=== PATIENT | female | born 1945 | race African-American/Black ===

== ENCOUNTER 2018-07-17 18:55 | Inpatient (IN) | payer OTHER ==
[~2018-07-17] VITALS: Ht 165.1 cm; Wt 93.2 kg
[2018-07-17] MEDS ORDERED: IPRATROPIUM BROMIDE 0.5 MG/2.5 ML NEBU. NEB ONE (20:15)
[2018-07-17] MEDS ORDERED: ALBUTEROL SULFATE 2.5 MG/3 ML NEBU. NEB ONE (20:15)
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
[2018-07-17] MEDS ORDERED: IPRATRPIUM/ALBUTEROL 0.5/2.5MG 3 ML NEBU. ONE (20:54)
[2018-07-17 21:13] LABS: BASO # 0.1 x10^3/uL (0.0-0.2); BASO % 1 % (0-3); EOS # 0.7 x10^3/uL (0.0-0.7); EOS % 12 % (0-3); HEMATOCRIT 39.7 % (36.0-47.0); HEMOGLOBIN 12.8 g/dL (12.0-15.5); LYMPH # 2.1 x10^3/uL (1.0-4.8); LYMPH % 34 % (24-48); MEAN CORPUSCULAR HEMOGLOBIN 26 pg (25-35); MEAN CORPUSCULAR HGB CONC 32 g/dL (31-37); MEAN CORPUSCULAR VOLUME 82 fL (79-100); MONO # 0.7 x10^3/uL (0.0-1.1); MONO % 12 % (0-9); NEUT # 2.5 x10^3uL (1.8-7.7); NEUT % 41 % (31-73); PLATELET COUNT 234 x10^3/uL (140-400); RED BLOOD COUNT 4.86 x10^6/uL (3.50-5.40); RED CELL DISTRIBUTION WIDTH 14.4 % (11.5-14.5)
[2018-07-17 21:23] LABS: CALCIUM 9.9 mg/dL (8.5-10.1); CREATININE 1.2 mg/dL (0.6-1.0); GFR 53.7; POTASSIUM 3.7 mmol/L (3.5-5.1)
[2018-07-17 21:29] LABS: ALBUMIN 3.8 g/dL (3.4-5.0); ALBUMIN/GLOBULIN RATIO 0.8 (1.0-1.7); TOTAL BILIRUBIN 0.4 mg/dL (0.2-1.0); TOTAL PROTEIN 8.5 g/dL (6.4-8.2)
[2018-07-17] MEDS ORDERED: LABETALOL 20 MG/4 ML DISP.SYRIN. IVP ONE (21:30)
[2018-07-17 22:17] LABS: BILIRUBIN,URINE NEGATIVE (NEG); CLARITY,URINE CLEAR; COLOR,URINE YELLOW; NITRITE,URINE NEGATIVE (NEG); PH,URINE 7.5; PROTEIN,URINE 30 mg/dL (NEG-TRACE); UROBILINOGEN,URINE 0.2 mg/dL (0.2 mg/dL)
[2018-07-17 22:30] LABS: BACTERIA,URINE MODERATE /HPF (0-FEW); RBC,URINE OCC /HPF (0-2); SQUAMOUS EPITHELIAL CELL,UR FEW /LPF; WBC,URINE OCC /HPF (0-4)
[2018-07-17] MEDS ORDERED: diphenhydrAMINE HCL 25 MG CAPSULE PO PRN (22:45)
[2018-07-17] MEDS ORDERED: LABETALOL 20 MG/4 ML DISP.SYRIN. IVP PRN (22:45)
[2018-07-17] MEDS ORDERED: ALBUTEROL SULFATE 2.5 MG/3 ML NEBU. NEB PRN (22:45)
[2018-07-17] MEDS ORDERED: IBUPROFEN 400 MG TABLET. PO PRN (22:45)
[2018-07-17] MEDS ORDERED: ENALAPRILAT 1.25 MG/ML VIAL. IVP PRN (22:45)
[2018-07-17 23:00] VITALS: BP 209/119
--- NOTE | 2018-07-17 23:42 | RAD ---
Indication:Short of breath TECHNIQUE:PA and lateral views of the chest COMPARISON:None FINDINGS: Heart is normal in size. Mild central bilateral peribronchial wall thickening noted. No focal consolidation. No pneumothorax or pleural effusion. Visualized bony thorax within normal limits. IMPRESSION: Findings suggests mild bronchitis. Clinically correlate with symptoms. Electronically signed by: Terry Elizabeth DO (07/17/2018 11:39 PM) [facility]
[2018-07-18] MEDS ORDERED: IPRATRPIUM/ALBUTEROL 0.5/2.5MG 3 ML NEBU. NEB ONE (00:15)
[2018-07-18] MEDS ORDERED: NIAC500T PO (03:12)
[2018-07-18] MEDS ORDERED: HYDR12.58 PO (03:12)
[2018-07-18 04:59] VITALS: BP 181/103
[2018-07-18 07:30] VITALS: BP 189/118
[2018-07-18] MEDS ORDERED: hydroCHLOROthiazide 12.5 MG CAPSULE PO SCH (09:00)
--- NOTE | 2018-07-18 09:22 | EKG ---
[facility] [address] [place] [address] Test Date: 2018-07-17 Test Time: 20:21:28 Pat Name: BELGICA MAYORGA Department: Room: [facility] Gender: F [employer]: : 1945 Requested By: ELADIA LEYVA Order Number: [id number] Reading MD: Tarun Aguero MD Measurements Intervals [place] Rate: 91 P: 56 MO: 166 QRS: -4 QRSD: 86 T: 76 QT: 380 QTc: 475 Interpretive Statements SINUS RHYTHM Electronically Signed On 07-20-2018 11:31:38 CDT by Tarun Aguero MD
[2018-07-18 11:00] VITALS: BP 211/128
[2018-07-18] MEDS: LISINOPRIL 20 MG TABLET PO ONE (11:00)
[2018-07-18 12:18] LABS: BASO # 0.1 x10^3/uL (0.0-0.2); BASO % 1 % (0-3); EOS # 0.6 x10^3/uL (0.0-0.7); EOS % 9 % (0-3); HEMATOCRIT 39.1 % (36.0-47.0); HEMOGLOBIN 12.9 g/dL (12.0-15.5); LYMPH # 1.8 x10^3/uL (1.0-4.8); LYMPH % 28 % (24-48); MEAN CORPUSCULAR HEMOGLOBIN 27 pg (25-35); MEAN CORPUSCULAR HGB CONC 33 g/dL (31-37); MEAN CORPUSCULAR VOLUME 82 fL (79-100); MONO % 15 % (0-9); NEUT # 3.2 x10^3uL (1.8-7.7); NEUT % 48 % (31-73); PLATELET COUNT 226 x10^3/uL (140-400); RED CELL DISTRIBUTION WIDTH 14.4 % (11.5-14.5); WHITE BLOOD COUNT 6.6 x10^3/uL (4.0-11.0)
[2018-07-18 12:28] LABS: CALCIUM 9.5 mg/dL (8.5-10.1); CREATININE 1.3 mg/dL (0.6-1.0)
--- NOTE | 2018-07-18 13:12 | PDOC1 ---
History and Physical Date of Admission Date of Admission DATE: 07/18/18 TIME: 13:08 Identification/Chief Complaint Chief Complaint High blood pressure Source Source: Caregiver, Chart review, Patient History of Present Illness History of Present Illness She is not the best historian because she is minimally cooperative I'm not sure why she got admitted when she refuses to take meds for us In any case most of the history obtained via chart because of minimal cooperation, admitted because of some symptoms. Was found have a blood pressure greater than 200, went down a bit after labetalol 10 at the emergency room. Patient was admitted to me for hypertensive emergency POA I'm seeing the patient, still refusing lisinopril. Blood pressure is still 180s to 200s. Takes HCTZ 12.5 at home and claims compliance. I did order order echocardiogram-I am unsure if she will allow this Multiple calls early today because of noncompliance. Or at least patient tells me that she wants to eat first before she takes pills. But we did give her a regular tray for breakfast and she does not like the meal for personal reasons. 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 SHe lives alone at home,. Past Medical History Cardiovascular: HTN Past Surgical History Past Surgical History: No pertinent history Family History Family History: Hypertension Social History Smoke: No ALCOHOL: none Drugs: None Current Problem List Problem List Problems Medical Problems: (1) Hypertensive urgency Status: Acute Current Medications Current Medications Current Medications Ipratropium [place] (Atrovent) 0.5 mg 1X ONCE NEB Last administered on at 20:15; Start 07/17/18 at 20:15; Stop 07/17/18 at 21:10; Status DC Albuterol Sulfate (Ventolin Neb Soln) 5 mg 1X ONCE NEB Last administered on at 20:15; Start 07/17/18 at 20:15; Stop 07/17/18 at 21:10; Status DC Labetalol HCl (Normodyne Iv Push) 10 mg 1X ONCE IVP Last administered on 07/17at 21:51; Start 07/17/18 at 21:30; Stop 07/17/18 at 21:31; Status DC Albuterol/ Ipratropium (Duoneb) 3 ml STK-MED ONCE .ROUTE ; Start 07/17/18 at 20 :54; Stop 07/17/18 at 20:55; Status DC Labetalol HCl (Normodyne Iv Push) 20 mg PRN Q2HR PRN IVP HYPERTENSION, SEE COMMENTS; Start 07/17/18 at 22:45 Enalaprilat (Vasotec Inj) 1.25 mg PRN Q6HRS PRN IVP HYPERTENSION, SEE COMMENTS ; Start 07/17/18 at 22:45 Albuterol Sulfate (Ventolin Neb Soln) 2.5 mg PRN Q4HRS PRN NEB SHORTNESS OF BREATH; Start 07/17/18 at 22:45 Diphenhydramine HCl (Benadryl) 25 mg PRN QHS PRN PO INSOMNIA; Start 07/17/18 at 22:45 Ibuprofen (Motrin) 400 mg PRN Q6HRS PRN PO INFLAMMATION; Start 07/17/18 at 22: 45 Albuterol/ Ipratropium (Duoneb) 3 ml 1X ONCE NEB ; Start 07/18/18 at 00:15; Stop 07/18/18 at 00:16; Status DC Niacin (Slo-Niacin) 500 mg QHS PO ; Start 07/18/18 at 21:00 Hydrochlorothiazide (Microzide) 12.5 mg DAILY PO Last administered on at 12:17; Start 07/18/18 at 09:00 Lisinopril (Prinivil) 20 mg DAILY PO ; Start 07/19/18 at 09:00 Lisinopril (Prinivil) 20 mg 1X ONCE PO ; Start 07/18/18 at 11:00; Stop at 11:01; Status DC Active Scripts Active Reported Hydrochlorothiazide Tablet (Hydrochlorothiazide) 12.5 Mg Tablet 1 Tab PO DAILY Niaspan (Niacin) 500 Mg Tab.er.24h 1 Tab PO QHS Allergies Allergies: Coded Allergies: acetaminophen (Verified Allergy, Severe, Swelling, 07/17/18) iodine (Verified Allergy, Severe, Itching, 07/17/18) Penicillins (Verified Allergy, Intermediate, Swelling, 07/17/18) ROS Review of System Limited, minimal cooperation Physical Exam General: Alert, Oriented X3, Cooperative, No acute distress HEENT: Atraumatic, PERRLA, Other (blind in the left eye) Lungs: Clear to auscultation, Normal air movement Heart: S1S2, RRR, no thrills, no rubs, no gallops Cardiovascular: S1, S2 Breasts: Normal, Rt breast nml w/o mass, Lt breast nml w/o mass, Nipples normal Abdomen: Normal bowel sounds, Soft, No tenderness, No hepatosplenomegaly, No masses Rectal Exam: not examined PELVIC: Nml ext genitalia Extremities: No clubbing, No cyanosis, No edema, Normal pulses, No tenderness/ swelling Skin: No rashes, No breakdown, No significant lesion Neuro: Normal gait, Normal speech, Strength at 5/5 X4 ext, Normal tone, Sensation intact, Cranial nerves 3-12 NL, Reflexes 2+ Psych/Mental Status: Mental status NL, Mood NL Vitals Vitals Vital Signs Date Time Temp Pulse Resp B/P (MAP) Pulse Ox O2 Delivery O2 Flow Rate FiO2 07/18/18 11:00 98.2 92 16 211/128 (155) 94 Room Air 98.2 07/17/18 22:25 96.0 Labs Labs Laboratory Tests Test 07/17/18 20:55 07/17/18 22:05 07/18/18 12:05 White Blood Count 6.0 x10^3/uL (4.0-11.0) 6.6 x10^3/uL (4.0-11.0) Red Blood Count 4.86 x10^6/uL (3.50-5.40) 4.80 x10^6/uL (3.50-5.40) Hemoglobin 12.8 g/dL (12.0-15.5) 12.9 g/dL (12.0-15.5) Hematocrit 39.7 % (36.0-47.0) 39.1 % (36.0-47.0) Mean Corpuscular Volume 82 fL (79-100) 82 fL (79-100) Mean Corpuscular Hemoglobin 26 pg (25-35) 27 pg (25-35) Mean Corpuscular Hemoglobin Concent 32 g/dL (31-37) 33 g/dL (31-37) Red Cell Distribution Width 14.4 % (11.5-14.5) 14.4 % (11.5-14.5) Platelet Count 234 x10^3/uL (140-400) 226 x10^3/uL (140-400) Neutrophils (%) (Auto) 41 % (31-73) 48 % (31-73) Lymphocytes (%) (Auto) 34 % (24-48) 28 % (24-48) Monocytes (%) (Auto) 12 % (0-9) 15 % (0-9) Eosinophils (%) (Auto) 12 % (0-3) 9 % (0-3) Basophils (%) (Auto) 1 % (0-3) 1 % (0-3) Neutrophils # (Auto) 2.5 x10^3uL (1.8-7.7) 3.2 x10^3uL (1.8-7.7) Lymphocytes # (Auto) 2.1 x10^3/uL (1.0-4.8) 1.8 x10^3/uL (1.0-4.8) Monocytes # (Auto) 0.7 x10^3/uL (0.0-1.1) 1.0 x10^3/uL (0.0-1.1) Eosinophils # (Auto) 0.7 x10^3/uL (0.0-0.7) 0.6 x10^3/uL (0.0-0.7) Basophils # (Auto) 0.1 x10^3/uL (0.0-0.2) 0.1 x10^3/uL (0.0-0.2) Sodium Level 141 mmol/L (136-145) 141 mmol/L (136-145) Potassium Level 3.7 mmol/L (3.5-5.1) 4.0 mmol/L (3.5-5.1) Chloride Level 101 mmol/L (98-107) 102 mmol/L (98-107) Carbon Dioxide Level 32 mmol/L (21-32) 31 mmol/L (21-32) Anion Gap 8 (6-14) 8 (6-14) Blood Urea Nitrogen 19 mg/dL (7-20) 19 mg/dL (7-20) Creatinine 1.2 mg/dL (0.6-1.0) 1.3 mg/dL (0.6-1.0) Estimated GFR (Cockcroft-Gault) 53.7 49.0 BUN/Creatinine Ratio 16 (6-20) Glucose Level 101 mg/dL (70-99) 99 mg/dL (70-99) Calcium Level 9.9 mg/dL (8.5-10.1) 9.5 mg/dL (8.5-10.1) Total Bilirubin 0.4 mg/dL (0.2-1.0) Aspartate Amino Transf (AST/SGOT) 28 U/L (15-37) Alanine Aminotransferase (ALT/SGPT) 37 U/L (14-59) Alkaline Phosphatase 104 U/L (46-116) Troponin I Quantitative < 0.017 ng/mL (0.000-0.055) SH-Oqc-C-Type Natriuretic Peptide 258 pg/mL (0-124) Total Protein 8.5 g/dL (6.4-8.2) Albumin 3.8 g/dL (3.4-5.0) Albumin/Globulin Ratio 0.8 (1.0-1.7) Urine Collection Type Unknown Urine Color Yellow Urine Clarity Clear Urine pH 7.5 Urine Specific [place] 1.010 Urine Protein 30 mg/dL (NEG-TRACE) Urine Glucose (UA) Negative mg/dL (NEG) Urine Ketones (Stick) Negative mg/dL (NEG) Urine Blood Negative (NEG) Urine Nitrite Negative (NEG) Urine Bilirubin Negative (NEG) Urine Urobilinogen Dipstick 0.2 mg/dL (0.2 mg/dL) Urine Leukocyte Esterase Negative (NEG) Urine RBC Occ /HPF (0-2) Urine WBC Occ /HPF (0-4) Urine Squamous Epithelial Cells Few /LPF Urine Bacteria Moderate /HPF (0-FEW) Laboratory Tests Test 07/17/18 20:55 07/17/18 22:05 07/18/18 12:05 White Blood Count 6.0 x10^3/uL (4.0-11.0) 6.6 x10^3/uL (4.0-11.0) Red Blood Count 4.86 x10^6/uL (3.50-5.40) 4.80 x10^6/uL (3.50-5.40) Hemoglobin 12.8 g/dL (12.0-15.5) 12.9 g/dL (12.0-15.5) Hematocrit 39.7 % (36.0-47.0) 39.1 % (36.0-47.0) Mean Corpuscular Volume 82 fL (79-100) 82 fL (79-100) Mean Corpuscular Hemoglobin 26 pg (25-35) 27 pg (25-35) Mean Corpuscular Hemoglobin Concent 32 g/dL (31-37) 33 g/dL (31-37) Red Cell Distribution Width 14.4 % (11.5-14.5) 14.4 % (11.5-14.5) Platelet Count 234 x10^3/uL (140-400) 226 x10^3/uL (140-400) Neutrophils (%) (Auto) 41 % (31-73) 48 % (31-73) Lymphocytes (%) (Auto) 34 % (24-48) 28 % (24-48) Monocytes (%) (Auto) 12 % (0-9) 15 % (0-9) Eosinophils (%) (Auto) 12 % (0-3) 9 % (0-3) Basophils (%) (Auto) 1 % (0-3) 1 % (0-3) Neutrophils # (Auto) 2.5 x10^3uL (1.8-7.7) 3.2 x10^3uL (1.8-7.7) Lymphocytes # (Auto) 2.1 x10^3/uL (1.0-4.8) 1.8 x10^3/uL (1.0-4.8) Monocytes # (Auto) 0.7 x10^3/uL (0.0-1.1) 1.0 x10^3/uL (0.0-1.1) Eosinophils # (Auto) 0.7 x10^3/uL (0.0-0.7) 0.6 x10^3/uL (0.0-0.7) Basophils # (Auto) 0.1 x10^3/uL (0.0-0.2) 0.1 x10^3/uL (0.0-0.2) Sodium Level 141 mmol/L (136-145) 141 mmol/L (136-145) Potassium Level 3.7 mmol/L (3.5-5.1) 4.0 mmol/L (3.5-5.1) Chloride Level 101 mmol/L (98-107) 102 mmol/L (98-107) Carbon Dioxide Level 32 mmol/L (21-32) 31 mmol/L (21-32) Anion Gap 8 (6-14) 8 (6-14) Blood Urea Nitrogen 19 mg/dL (7-20) 19 mg/dL (7-20) Creatinine 1.2 mg/dL (0.6-1.0) 1.3 mg/dL (0.6-1.0) Estimated GFR (Cockcroft-Gault) 53.7 49.0 BUN/Creatinine Ratio 16 (6-20) Glucose Level 101 mg/dL (70-99) 99 mg/dL (70-99) Calcium Level 9.9 mg/dL (8.5-10.1) 9.5 mg/dL (8.5-10.1) Total Bilirubin 0.4 mg/dL (0.2-1.0) Aspartate Amino Transf (AST/SGOT) 28 U/L (15-37) Alanine Aminotransferase (ALT/SGPT) 37 U/L (14-59) Alkaline Phosphatase 104 U/L (46-116) Troponin I Quantitative < 0.017 ng/mL (0.000-0.055) BP-Hge-M-Type Natriuretic Peptide 258 pg/mL (0-124) Total Protein 8.5 g/dL (6.4-8.2) Albumin 3.8 g/dL (3.4-5.0) Albumin/Globulin Ratio 0.8 (1.0-1.7) Urine Collection Type Unknown Urine Color Yellow Urine Clarity Clear Urine pH 7.5 Urine Specific [place] 1.010 Urine Protein 30 mg/dL (NEG-TRACE) Urine Glucose (UA) Negative mg/dL (NEG) Urine Ketones (Stick) Negative mg/dL (NEG) Urine Blood Negative (NEG) Urine Nitrite Negative (NEG) Urine Bilirubin Negative (NEG) Urine Urobilinogen Dipstick 0.2 mg/dL (0.2 mg/dL) Urine Leukocyte Esterase Negative (NEG) Urine RBC Occ /HPF (0-2) Urine WBC Occ /HPF (0-4) Urine Squamous Epithelial Cells Few /LPF Urine Bacteria Moderate /HPF (0-FEW) VTE Prophylaxis Ordered VTE Prophylaxis Devices: Yes VTE Pharmacological Prophylaxi: Yes Assessment/Plan Assessment/Plan HTN emergency Noncompliance/Difficult behavior BLind on left eye PLAN: Echocardiogram, rule out hypertensive heart disease Start lisinopril 20 Continue HCTZ 12.5 I'm recommending her to discharge if she does not want us to manage her as she signed a paper on admission allowing us treat her-but she is not allowing this dw GEOVANNA CARO MD Jul 18, 2018 13:12
--- NOTE | 2018-07-18 15:39 | PDOC3 ---
Discharge Summary Visit Information Date of Admission: Jul 17, 2018 Date of Discharge: Jul 18, 2018 Admitting Diagnosis Comment: HTN emergency Noncompliance/Difficult behavior BLind on left eye Final Diagnosis Problems Medical Problems: (1) Hypertensive urgency Status: Acute Brief Hospital Course Allergies Allergies Coded Allergies Type Severity Reaction Last Updated Verified acetaminophen Allergy Severe Swelling 07/17/18 Yes iodine Allergy Severe Itching 07/17/18 Yes Penicillins Allergy Intermediate Swelling 07/17/18 Yes Vital Signs Vital Signs Date Time Temp Pulse Resp B/P (MAP) Pulse Ox O2 Delivery O2 Flow Rate FiO2 07/18/18 11:00 98.2 92 16 211/128 (155) 94 Room Air 98.2 07/17/18 22:25 96.0 Lab Results Laboratory Tests Test 07/17/18 20:55 07/17/18 22:05 07/18/18 12:05 White Blood Count 6.0 x10^3/uL (4.0-11.0) 6.6 x10^3/uL (4.0-11.0) Red Blood Count 4.86 x10^6/uL (3.50-5.40) 4.80 x10^6/uL (3.50-5.40) Hemoglobin 12.8 g/dL (12.0-15.5) 12.9 g/dL (12.0-15.5) Hematocrit 39.7 % (36.0-47.0) 39.1 % (36.0-47.0) Mean Corpuscular Volume 82 fL (79-100) 82 fL (79-100) Mean Corpuscular Hemoglobin 26 pg (25-35) 27 pg (25-35) Mean Corpuscular Hemoglobin Concent 32 g/dL (31-37) 33 g/dL (31-37) Red Cell Distribution Width 14.4 % (11.5-14.5) 14.4 % (11.5-14.5) Platelet Count 234 x10^3/uL (140-400) 226 x10^3/uL (140-400) Neutrophils (%) (Auto) 41 % (31-73) 48 % (31-73) Lymphocytes (%) (Auto) 34 % (24-48) 28 % (24-48) Monocytes (%) (Auto) 12 % (0-9) 15 % (0-9) Eosinophils (%) (Auto) 12 % (0-3) 9 % (0-3) Basophils (%) (Auto) 1 % (0-3) 1 % (0-3) Neutrophils # (Auto) 2.5 x10^3uL (1.8-7.7) 3.2 x10^3uL (1.8-7.7) Lymphocytes # (Auto) 2.1 x10^3/uL (1.0-4.8) 1.8 x10^3/uL (1.0-4.8) Monocytes # (Auto) 0.7 x10^3/uL (0.0-1.1) 1.0 x10^3/uL (0.0-1.1) Eosinophils # (Auto) 0.7 x10^3/uL (0.0-0.7) 0.6 x10^3/uL (0.0-0.7) Basophils # (Auto) 0.1 x10^3/uL (0.0-0.2) 0.1 x10^3/uL (0.0-0.2) Sodium Level 141 mmol/L (136-145) 141 mmol/L (136-145) Potassium Level 3.7 mmol/L (3.5-5.1) 4.0 mmol/L (3.5-5.1) Chloride Level 101 mmol/L (98-107) 102 mmol/L (98-107) Carbon Dioxide Level 32 mmol/L (21-32) 31 mmol/L (21-32) Anion Gap 8 (6-14) 8 (6-14) Blood Urea Nitrogen 19 mg/dL (7-20) 19 mg/dL (7-20) Creatinine 1.2 mg/dL (0.6-1.0) 1.3 mg/dL (0.6-1.0) Estimated GFR (Cockcroft-Gault) 53.7 49.0 BUN/Creatinine Ratio 16 (6-20) Glucose Level 101 mg/dL (70-99) 99 mg/dL (70-99) Calcium Level 9.9 mg/dL (8.5-10.1) 9.5 mg/dL (8.5-10.1) Total Bilirubin 0.4 mg/dL (0.2-1.0) Aspartate Amino Transf (AST/SGOT) 28 U/L (15-37) Alanine Aminotransferase (ALT/SGPT) 37 U/L (14-59) Alkaline Phosphatase 104 U/L (46-116) Troponin I Quantitative < 0.017 ng/mL (0.000-0.055) TZ-Bsg-J-Type Natriuretic Peptide 258 pg/mL (0-124) Total Protein 8.5 g/dL (6.4-8.2) Albumin 3.8 g/dL (3.4-5.0) Albumin/Globulin Ratio 0.8 (1.0-1.7) Urine Collection Type Unknown Urine Color Yellow Urine Clarity Clear Urine pH 7.5 Urine Specific [place] 1.010 Urine Protein 30 mg/dL (NEG-TRACE) Urine Glucose (UA) Negative mg/dL (NEG) Urine Ketones (Stick) Negative mg/dL (NEG) Urine Blood Negative (NEG) Urine Nitrite Negative (NEG) Urine Bilirubin Negative (NEG) Urine Urobilinogen Dipstick 0.2 mg/dL (0.2 mg/dL) Urine Leukocyte Esterase Negative (NEG) Urine RBC Occ /HPF (0-2) Urine WBC Occ /HPF (0-4) Urine Squamous Epithelial Cells Few /LPF Urine Bacteria Moderate /HPF (0-FEW) Laboratory Tests Test 07/17/18 20:55 07/17/18 22:05 07/18/18 12:05 White Blood Count 6.0 x10^3/uL (4.0-11.0) 6.6 x10^3/uL (4.0-11.0) Red Blood Count 4.86 x10^6/uL (3.50-5.40) 4.80 x10^6/uL (3.50-5.40) Hemoglobin 12.8 g/dL (12.0-15.5) 12.9 g/dL (12.0-15.5) Hematocrit 39.7 % (36.0-47.0) 39.1 % (36.0-47.0) Mean Corpuscular Volume 82 fL (79-100) 82 fL (79-100) Mean Corpuscular Hemoglobin 26 pg (25-35) 27 pg (25-35) Mean Corpuscular Hemoglobin Concent 32 g/dL (31-37) 33 g/dL (31-37) Red Cell Distribution Width 14.4 % (11.5-14.5) 14.4 % (11.5-14.5) Platelet Count 234 x10^3/uL (140-400) 226 x10^3/uL (140-400) Neutrophils (%) (Auto) 41 % (31-73) 48 % (31-73) Lymphocytes (%) (Auto) 34 % (24-48) 28 % (24-48) Monocytes (%) (Auto) 12 % (0-9) 15 % (0-9) Eosinophils (%) (Auto) 12 % (0-3) 9 % (0-3) Basophils (%) (Auto) 1 % (0-3) 1 % (0-3) Neutrophils # (Auto) 2.5 x10^3uL (1.8-7.7) 3.2 x10^3uL (1.8-7.7) Lymphocytes # (Auto) 2.1 x10^3/uL (1.0-4.8) 1.8 x10^3/uL (1.0-4.8) Monocytes # (Auto) 0.7 x10^3/uL (0.0-1.1) 1.0 x10^3/uL (0.0-1.1) Eosinophils # (Auto) 0.7 x10^3/uL (0.0-0.7) 0.6 x10^3/uL (0.0-0.7) Basophils # (Auto) 0.1 x10^3/uL (0.0-0.2) 0.1 x10^3/uL (0.0-0.2) Sodium Level 141 mmol/L (136-145) 141 mmol/L (136-145) Potassium Level 3.7 mmol/L (3.5-5.1) 4.0 mmol/L (3.5-5.1) Chloride Level 101 mmol/L (98-107) 102 mmol/L (98-107) Carbon Dioxide Level 32 mmol/L (21-32) 31 mmol/L (21-32) Anion Gap 8 (6-14) 8 (6-14) Blood Urea Nitrogen 19 mg/dL (7-20) 19 mg/dL (7-20) Creatinine 1.2 mg/dL (0.6-1.0) 1.3 mg/dL (0.6-1.0) Estimated GFR (Cockcroft-Gault) 53.7 49.0 BUN/Creatinine Ratio 16 (6-20) Glucose Level 101 mg/dL (70-99) 99 mg/dL (70-99) Calcium Level 9.9 mg/dL (8.5-10.1) 9.5 mg/dL (8.5-10.1) Total Bilirubin 0.4 mg/dL (0.2-1.0) Aspartate Amino Transf (AST/SGOT) 28 U/L (15-37) Alanine Aminotransferase (ALT/SGPT) 37 U/L (14-59) Alkaline Phosphatase 104 U/L (46-116) Troponin I Quantitative < 0.017 ng/mL (0.000-0.055) LU-Ofl-O-Type Natriuretic Peptide 258 pg/mL (0-124) Total Protein 8.5 g/dL (6.4-8.2) Albumin 3.8 g/dL (3.4-5.0) Albumin/Globulin Ratio 0.8 (1.0-1.7) Urine Collection Type Unknown Urine Color Yellow Urine Clarity Clear Urine pH 7.5 Urine Specific [place] 1.010 Urine Protein 30 mg/dL (NEG-TRACE) Urine Glucose (UA) Negative mg/dL (NEG) Urine Ketones (Stick) Negative mg/dL (NEG) Urine Blood Negative (NEG) Urine Nitrite Negative (NEG) Urine Bilirubin Negative (NEG) Urine Urobilinogen Dipstick 0.2 mg/dL (0.2 mg/dL) Urine Leukocyte Esterase Negative (NEG) Urine RBC Occ /HPF (0-2) Urine WBC Occ /HPF (0-4) Urine Squamous Epithelial Cells Few /LPF Urine Bacteria Moderate /HPF (0-FEW) Brief Hospital Course Ms. Prado is a 72 old [sex] who presented with [ ] She is not the best historian because she is minimally cooperative I'm not sure why she got admitted when she refuses to take meds for us In any case most of the history obtained via chart because of minimal cooperation, admitted because of some symptoms. Was found have a blood pressure greater than 200, went down a bit after labetalol 10 at the emergency room. Patient was admitted to me for hypertensive emergency POA I'm seeing the patient, still refusing lisinopril. Blood pressure is still 180s to 200s. Takes HCTZ 12.5 at home and claims compliance. I did order order echocardiogram-I am unsure if she will allow this Multiple calls early today because of noncompliance. Or at least patient tells me that she wants to eat first before she takes pills. But we did give her a regular tray for breakfast and she does not like the meal for personal reasons. 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 SHe lives alone at home,. COURSE: In a span of 12 hrs she has been refusing iV BP meds and PO BP Meds, being very difficult., She did sign consent to treat upon admission and I reminded her of that, Multiple calls from RN today regarding these issues. I was bebe to tell her no point in staying in hospital if she is refusing treatment for her high BP. To dc today, I still gave lisinopril HCTZ rx for home if she were interested Dw CARY Rasheed Discharge Information Condition at Discharge: Comment (refuses nmedciations, refusing us to treat her appropriately) Disposition/Orders: D/C to Home Scheduled Hydrochlorothiazide (Hydrochlorothiazide Tablet) 12.5 Mg Tablet, 1 TAB PO DAILY , #30 Ref 5 (Reported) Entered as Reported by: SOLOMON HALLMAN on 07/18/18311 Last Action: Converted on 07/18/18315 by SOLOMON HALLMAN Niacin (Niaspan) 500 Mg Tab.er.24h, 1 TAB PO QHS, #30 Ref 5 (Reported) Entered as Reported by: SOLOMON HALLMAN on 07/18/18311 Last Action: Continued on 07/18/18315 by GEOVANNA COOPER MD Jul 18, 2018 15:39
[2018-07-18] MEDS ORDERED: AMLO10TA6 PO (15:54)
[2018-07-18] MEDS ORDERED: amLODIPine BESYLATE 10 MG TABLET PO SCH (16:00)
[2018-07-18 19:59] VITALS: BP 207/128
[2018-07-18] MEDS ORDERED: NIACIN ER 500 MG TABLET.ER PO SCH (21:00)
[2018-07-19] MEDS ORDERED: LISINOPRIL 20 MG TABLET PO SCH (09:00)
== END 2018-07-18 22:01 | disposition home or self-care (01) | DRG 305 ==
LOC: ER 18:55 → 5 SOUTH 22:28
PROVIDERS: ADMIT Internal Medicine; ATTEND Internal Medicine
DX: I16.1 Hypertensive emergency (principal); H54.62 Unqualified visual loss, left eye, normal vision right eye; Z60.2 Problems related to living alone; I16.0 Hypertensive urgency; Z82.49 Family history of ischemic heart disease and other diseases of the circulatory system; Z91.19 Patient's noncompliance with other medical treatment and regimen; Z88.0 Allergy status to penicillin; Z88.8 Allergy status to other drugs, medicaments and biological substances; Z88.6 Allergy status to analgesic agent; Z91.041 Radiographic dye allergy status
CPT/HCPCS: 36415; 71046; 80048; 80053; 81001; 83880; 84484; 85025; 87086; 87186; 93005; 94640; 96374; J3490; J7613; J7644; 99285-25

== ENCOUNTER 2021-01-24 01:43 | Emergency (ER) | payer OTHER, MEDICAID ==
[~2021-01-24] VITALS: Ht 170.2 cm; Wt 81.4 kg
[~2021-01-24 01:43] MED LIST: AMLO-187 PO; HYDR12.58 PO; NIAC500T PO
--- NOTE | 2021-01-24 03:22 | PHYS DOC ---
Past Medical History Past Medical History: Anxiety, Hypertension Past Surgical History: No Surgical History Smoking Status: Never Smoker Alcohol Use: None Drug Use: None General Adult EDM: Chief Complaint: headache HPI: HPI: Patient is a 75 year old who presented to the ER due to headache for several days. She denied any chest pain, no shortness of air, no abdominal pain, no nausea or vomiting. Patient just wants a CT scan of her head to make sure she does not have a head bleed. She declined any other form of treatment or work up. Review of Systems: Review of Systems: Constitutional: Denies fever or chills. [] Eyes: Denies change in visual acuity. [] HENT: Denies nasal congestion or sore throat. [] Respiratory: Denies cough or shortness of breath. [] Cardiovascular: Denies chest pain or edema. [] GI: Denies abdominal pain, nausea, vomiting, bloody stools or diarrhea. [] : Denies dysuria. [] Musculoskeletal: Denies back pain or joint pain. [] Integument: Denies rash. [] Neurologic: Positive for headache, no focal weakness or sensory changes. [] Endocrine: Denies polyuria or polydipsia. [] Lymphatic: Denies swollen glands. [] Psychiatric: Denies depression or anxiety. [] Heart Score: C/O Chest Pain: N/A Risk Factors: Risk Factors: DM, Current or recent (<one month) smoker, HTN, HLP, family history of CAD, obesity. Risk Scores: Score 0 - 3: 2.5% MACE over next 6 weeks - Discharge Home Score 4 - 6: 20.3% MACE over next 6 weeks - Admit for Clinical Observation Score 7 - 10: 72.7% MACE over next 6 weeks - Early Invasive Strategies Allergies: Allergies: Allergies Coded Allergies Type Severity Reaction Last Updated Verified acetaminophen Allergy Severe Swelling 07/17/18 Yes iodine Allergy Severe Itching 07/17/18 Yes Penicillins Allergy Intermediate Swelling 07/17/18 Yes Physical Exam: PE: Constitutional: Well developed, well nourished, no acute distress, non-toxic appearance. [] HENT: Normocephalic, atraumatic, bilateral external ears normal, oropharynx moist, no oral exudates, nose normal. [] Eyes: PERRLA, EOMI, conjunctiva normal, no discharge. [] Neck: Normal range of motion, no tenderness, supple, no stridor. [] Cardiovascular:Heart rate regular rhythm, no murmur [] Lungs & Thorax: Bilateral breath sounds clear to auscultation [] Abdomen: Bowel sounds normal, soft, no tenderness, no masses, no pulsatile masses. [] Skin: Warm, dry, no erythema, no rash. [] Back: No tenderness, no CVA tenderness. [] Extremities: No tenderness, no cyanosis, no clubbing, ROM intact, no edema. [] Neurologic: Alert and oriented X 3, normal motor function, normal sensory function, no focal deficits noted. [] Psychologic: Affect normal, judgement normal, mood normal. [] Current Patient Data: Vital Signs: Vital Signs Date Time Temp Pulse Resp B/P (MAP) Pulse Ox O2 Delivery O2 Flow Rate FiO2 01/24/21 02:10 98.7 87 24 238/119 (158) 98 Room Air 98.7 232/109 (150) EKG: EKG: [] Radiology/Procedures: Radiology/Procedures: [facility] [address] [place] [address] IMAGING REPORT Signed PATIENT: BELGICA MAYORGA AACCOUNT: [id number] : 1945 LOCATION: ER AGE: 75 SEX: F EXAM STATUS: REG ER ORD. PHYSICIAN: MEEK CALL DO REASON: HEADACHE PROCEDURE: CT HEAD WO CONTRAST INDICATION: Reason: HEADACHE / Spl. Instructions: / History: COMPARISON: None. TECHNIQUE: Axial CT images obtained through the head without intravenous contrast. One or more of the following individualized dose reduction techniques were utilized for this examination: 1. Automated exposure control; 2. Adjustment of the mA and/or kV according to patient size; 3. Use of iterative reconstruction technique. FINDINGS: No intracranial hemorrhage. No midline shift. Basal cisterns patents. Ventricles and sulci are globally prominent. No acute osseous abnormality. Chronic appearing deformity left globe. Scattered foci of low attenuation within the white matter. IMPRESSION: 1. No acute intracranial hemorrhage. 2. Scattered regions of low attenuation within the white matter. Non-specific in nature but frequently secondary to small vessel ischemic disease. 3. Prominence of ventricles and sulci which is frequently secondary to age related volume loss. Electronically signed by: Javi Penn MD (01/24/2021 3:41 AM) [id number] DICTATED and SIGNED BY: JAVI PENN MD DATE: 01/24/21 [id number] 0 [] Course & Med Decision Making: Course & Med Decision Making Pertinent Labs and Imaging studies reviewed. (See chart for details) Patient's blood pressure was still elevated. Patient did not want anything done. She and her son said she has this problem for years. Her blood pressure would be high whenever she sees a doctor, will be low when she got home. She is on blood pressure medication, will take it when she got home. She declined any lab work or treatment for her blood pressure in the ER. She declined hospital admission. Her son was ok with it also. Dragon Disclaimer: Dragon Disclaimer: This electronic medical record was generated, in whole or in part, using a voice recognition dictation system. Departure Departure Impression: Primary Impression: Headache Additional Impression: Hypertension Disposition: 01 HOME / SELF CARE / HOMELESS Condition: STABLE Referrals: ABEL MART MD (PCP) Please follow up with your doctor in 1-2 days Patient Instructions: General Headache Without Cause, Hypertension Additional Instructions: Thank you for visiting our Emergency Department. We appreciate you trusting us with your care. If any additional problems come up don't hesitate to return to visit us. Please follow up with your primary care provider so they can plan additional care if needed and know about the problem that you had. If symptoms worsen come back to the Emergency Department. Any concerning symptoms that start such as chest pain, shortness of air, weakness or numbness on one side of the body, running high fevers or any other concerning symptoms return to the ER. MEEK CALL DO January 24, 2021 03:22
--- NOTE | 2021-01-24 03:43 | RAD ---
INDICATION: Reason: HEADACHE / Spl. Instructions: / History: COMPARISON: None. TECHNIQUE: Axial CT images obtained through the head without intravenous contrast. One or more of the following individualized dose reduction techniques were utilized for this examinat ion: 1. Automated exposure control; 2. Adjustment of the mA and/or kV according to patient size; 3 . Use of iterative reconstruction technique. FINDINGS: No intracranial hemorrhage. No midline shift. Basal cisterns patents. Ventricles and sulci are globally prominent. No acute osseous abnormality. Chronic appearing deformity left globe. Scattered foci of low attenuation within the white matter. IMPRESSION: 1. No acute intracranial hemorrhage. 2. Scattered regions of low attenuation within the white matter. Non-specific in nature but frequen tly secondary to small vessel ischemic disease. 3. Prominence of ventricles and sulci which is frequently secondary to age related volume loss. Electronically signed by: Rogelio Tong MD (01/24/2021 3:41 AM) [id number]
[2021-01-24 04:37] VITALS: BP 180/103
== END 2021-01-24 05:35 | disposition home or self-care (01) ==
LOC: ER 01:43
DX: R51.9 Headache, unspecified (principal); I10 Essential (primary) hypertension
CPT/HCPCS: 70450; 99285-25